=== PATIENT | male | born 2000 | race Hispanic/Latino ===

== ENCOUNTER 2023-12-18 17:26 | Emergency (ER) | payer OTHER ==
[~2023-12-18] VITALS: Ht 182.9 cm; Wt 86.3 kg
[2023-12-18 21:05] VITALS: BP 118/75; TEMP 98.6; O2SAT 100
[2023-12-18] MEDS: IBUPROFEN 800 MG TAB PO ONE (21:09)
== END 2023-12-18 21:15 | disposition home or self-care (01) ==
LOC: M ED 17:26
DX: S49.91XA Unspecified injury of right shoulder and upper arm, initial encounter (principal); V00.311A Fall from snowboard, initial encounter; F10.10 Alcohol abuse, uncomplicated; Y92.9 Unspecified place or not applicable; Y93.23 Activity, snow (alpine) (downhill) skiing, snowboarding, sledding, tobogganing and snow tubing; Y99.9 Unspecified external cause status